=== PATIENT | female | born 1985 | race Caucasian/White ===

== ENCOUNTER 2017-10-28 07:47 | Emergency (ER) | payer MEDICAID ==
[~2017-10-28] VITALS: Ht 160 cm; Wt 61.5 kg
[~2017-10-28 07:47] MED LIST: DOXY1TAB3 PO; GING250C PO
[2017-10-28 08:18] LABS: URINE HCG NEGATIVE (NEG)
[2017-10-28 08:22] LABS: CLARITY,URINE CLOUDY (Clear); COLOR,URINE YELLOW (Yellow); GLUCOSE, URINE NEGATIVE (Neg); KETONES,URINE NEGATIVE (Neg); LEUKOCYTE ESTERASE ,URINE MODERATE (Neg); NITRITES, URINE NEGATIVE (Neg); OCCULT BLOOD,URINE LARGE (Neg); PROTEIN,URINE 30 mg/dl (Neg)
[2017-10-28 08:26] LABS: UA COLLECTION TYPE CLN CATCH MIDSTREAM
[2017-10-28 08:33] LABS: RBC,URINE TNTC /HPF (0-2); WBC,URINE 50-100 /HPF (0-4)
[2017-10-28 08:34] LABS: BACTERIA,URINE FEW /HPF (Neg); MUCUS STRANDS MODERATE /LPF (Neg); SQUAMOUS EPITHELIAL CELL,UR FEW /LPF (FEW)
[2017-10-28 08:43] VITALS: BP 108/69
[2017-10-28 08:45] LABS: BASOPHILS % (AUTO) 0.2 % (0-1); EOSINOPHILS # (AUTO) 0.2 X10'3 (0-0.9); EOSINOPHILS % (AUTO) 0.9 % (0-6); HEMATOCRIT 40.7 % (35.0-45.0); HEMOGLOBIN 14.2 g/dl (12.0-16.0); LYMPHOCYTES # (AUTO) 1.3 X10'3 (1.1-4.8); LYMPHOCYTES % (AUTO) 6.3 % (21-51); MEAN CORPUSCULAR HEMOGLOBIN 32.7 PG (27.0-31.0); MEAN CORPUSCULAR HGB CONC 34.9 % (33.0-36.5); MEAN CORPUSCULAR VOLUME 93.9 FL (78-98); MEAN PLATELET VOLUME 8.2 FL (7.4-10.4); MONOCYTES # (AUTO) 0.6 X10'3 (0-0.9); MONOCYTES % (AUTO) 2.8 % (2-12); NEUTROPHILS # (AUTO) 18.9 X10'3 (1.8-7.7); NEUTROPHILS % (AUTO) 89.8 % (42-75); PLATELET COUNT 273 X10'3 (140-440); RED BLOOD COUNT 4.33 X10'6 (4.20-5.60); RED CELL DISTRIBUTION WIDTH 14.5 % (11.5-14.5); WHITE BLOOD COUNT 21.1 X10'3 (4.5-11.0)
[2017-10-28 08:55] LABS: PROTHROMBIN TIME 10.1 SECONDS (9.0-12.0)
[2017-10-28] MEDS ORDERED: ondansetron/PF 4mg/2ml inj IV ONE (09:10)
[2017-10-28] MEDS ORDERED: fentaNYL/PF 50MCG/1 ML 2ML syringe IV ONE (09:10)
[2017-10-28 09:11] LABS: ALANINE AMINOTRANSFERASE 16 U/L (12-78); ALBUMIN 4.1 G/DL (3.4-5.0); ALBUMIN/GLOBULIN RATIO 1.1 (1.1-1.5); ALKALINE PHOSPHATASE 60 IU/L (46-116); ANION GAP 10 (8-16); ASPARTATE AMINO TRANSFERASE 18 U/L (10-37); BILIRUBIN,TOTAL 0.3 MG/DL (0.1-1.0); BLOOD UREA NITROGEN 12 MG/DL (7-18); BUN/CREATININE RATIO 18.8 (6.6-38.0); CALCIUM 9.4 MG/DL (8.5-10.1); CHLORIDE 105 MMOL/L (99-107); CREATININE 0.64 MG/DL (0.40-0.90); GLUCOSE 99 MG/DL (70-104); SODIUM 142 MMOL/L (135-145); TOTAL CARBON DIOXIDE 26.6 MMOL/L (24-32); TOTAL PROTEIN 7.7 G/DL (6.4-8.2); eGFR > 90 ML/MIN
[2017-10-28] MEDS ORDERED: diphenhydrAMINE 50 mg/ml inj IV ONE (09:50)
[2017-10-28] MEDS ORDERED: cefTRIAXone 1g/NS 100ml IVPB 100 ML IV ONE (10:15)
[2017-10-28] MEDS ORDERED: ketorolac trometh. 30mg/ml inj. IV ONE (10:15)
[2017-10-28] MEDS ORDERED: HYDROcodone/acetaminophen 5mg/325mg tablet PO ONE (10:15)
[2017-10-28] MEDS ORDERED: PHEN-716 PO (10:18)
[2017-10-28] MEDS ORDERED: ONDA8TAB9 PO (10:18)
[2017-10-28] MEDS ORDERED: CIP750T PO (10:18)
[2017-10-28] MEDS ORDERED: HYDR-3965 PO (10:18)
== END 2017-10-28 11:22 | disposition home or self-care (01) ==
LOC: ER 07:48
DX: N83.8 Other noninflammatory disorders of ovary, fallopian tube and broad ligament (principal); R10.84 Generalized abdominal pain; R31.9 Hematuria, unspecified; N39.0 Urinary tract infection, site not specified
CPT/HCPCS: 36415; 74176; 80053; 81001; 81025; 85025; 85610; 87088; 96365; 96375; 99285; J0696; J1200; J1885; J2405; J3010

== ENCOUNTER 2017-12-24 08:29 | Emergency (ER) | payer MEDICAID ==
[~2017-12-24] VITALS: Ht 160 cm; Wt 130.0 kg
[~2017-12-24 08:29] MED LIST changes: +ONDA8TAB9 PO; +PHEN-716 PO
[2017-12-24 08:33] VITALS: BP 130/66
[2017-12-24] MEDS ORDERED: ketorolac trometh inj. 60 MG/2 ML VIAL IM ONE (09:45)
[2017-12-24] MEDS ORDERED: ketorolac trometh. 30mg/ml inj. IM ONE (09:45)
[2017-12-24 10:47] LABS: CLARITY,URINE TURBID (Clear); COLOR,URINE YELLOW (Yellow); GLUCOSE, URINE NEGATIVE (Neg); KETONES,URINE TRACE mg/dl (Neg); LEUKOCYTE ESTERASE ,URINE LARGE (Neg); NITRITES, URINE POSITIVE (Neg); OCCULT BLOOD,URINE LARGE (Neg); PROTEIN,URINE 100 mg/dl (Neg); URINE HCG NEGATIVE (NEG)
[2017-12-24 10:50] LABS: UA COLLECTION TYPE CLN CATCH MIDSTREAM
[2017-12-24] MEDS ORDERED: BACDS PO (11:04)
[2017-12-24] MEDS ORDERED: PHEN-716 PO (11:04)
[2017-12-24] MEDS ORDERED: NAPR-56 PO (11:05)
[2017-12-24 11:11] LABS: RBC,URINE 20-50 /HPF (0-2); WBC,URINE TNTC /HPF (0-4)
[2017-12-24 11:12] LABS: BACTERIA,URINE 1+ /HPF (Neg); MUCUS STRANDS FEW /LPF (Neg); SQUAMOUS EPITHELIAL CELL,UR FEW /LPF (FEW)
== END 2017-12-24 11:27 | disposition home or self-care (01) ==
LOC: ER 08:30
DX: S16.1XXA Strain of muscle, fascia and tendon at neck level, initial encounter (principal); N39.0 Urinary tract infection, site not specified; X58.XXXA Exposure to other specified factors, initial encounter; Y93.01 Activity, walking, marching and hiking; Y92.89 Other specified places as the place of occurrence of the external cause; Y99.8 Other external cause status
CPT/HCPCS: 81001; 81025; 87088; 96372; 99284; J1885; 87186

== ENCOUNTER 2018-06-09 07:45 | Emergency (ER) | payer MEDICAID ==
[~2018-06-09] VITALS: Ht 160 cm; Wt 59.0 kg
[2018-06-09 07:50] VITALS: BP 116/61
[2018-06-09] MEDS ORDERED: AZIT-63 PO (08:04)
[2018-06-09] MEDS ORDERED: BENZ-16 PO (08:04)
[2018-06-09] MEDS ORDERED: CODE10LI PO (08:04)
== END 2018-06-09 08:11 | disposition home or self-care (01) ==
LOC: ER 07:46
DX: J06.9 Acute upper respiratory infection, unspecified (principal); Z88.6 Allergy status to analgesic agent; Z79.2 Long term (current) use of antibiotics; Z98.890 Other specified postprocedural states
CPT/HCPCS: 99283

== ENCOUNTER 2019-01-05 09:52 | Emergency (ER) | payer MEDICAID ==
[~2019-01-05] VITALS: Ht 160 cm; Wt 63.6 kg
[~2019-01-05 09:52] MED LIST changes: +CODE10LI PO
[2019-01-05 10:07] VITALS: BP 112/65
[2019-01-05] MEDS ORDERED: LORazepam 2 mg/ml vial IM ONE (10:50)
[2019-01-05] MEDS ORDERED: LORazepam 1 MG tablet PO ONE (11:25)
== END 2019-01-05 11:54 | disposition home or self-care (01) ==
LOC: ER 09:54
DX: F41.0 Panic disorder [episodic paroxysmal anxiety] (principal); Z98.890 Other specified postprocedural states; Z79.899 Other long term (current) drug therapy; Z88.5 Allergy status to narcotic agent
CPT/HCPCS: 93005; 99284

== ENCOUNTER 2019-01-26 10:21 | Emergency (ER) | payer MEDICAID ==
[~2019-01-26] VITALS: Ht 160 cm; Wt 50.8 kg
[2019-01-26 10:32] VITALS: BP 113/62
--- NOTE | 2019-01-26 10:56 | NUR ---
AMBULATORY TO ER #15 WITH C/O COUGH AND CONGESTION X 1.5 WEEKS. STATES SHE IS TAKING COLD MEDICATION FROM OTC WITHOUT RELIEF. EARS FEELING FULL WITH BUBBLING. HEADACHES ON AND OFF. ABD BLOATING FROM COUGHING HARD.
[2019-01-26] MEDS ORDERED: BENZ-16 PO (11:22)
[2019-01-26] MEDS ORDERED: GUAI473S11 PO (11:22)
== END 2019-01-26 11:36 | disposition home or self-care (01) ==
LOC: ER 10:21
DX: J06.9 Acute upper respiratory infection, unspecified (principal); F17.200 Nicotine dependence, unspecified, uncomplicated; Z88.5 Allergy status to narcotic agent; Z79.899 Other long term (current) drug therapy
CPT/HCPCS: 99283

== ENCOUNTER 2019-05-24 09:44 | Emergency (ER) | payer MEDICAID ==
[~2019-05-24] VITALS: Ht 160 cm; Wt 61.4 kg
[2019-05-24] MEDS ORDERED: normal saline 1000ML IV soln IVB ONE (10:30)
[2019-05-24] MEDS ORDERED: ondansetron/PF 4mg/2ml inj IV ONE (10:30)
[2019-05-24 10:49] LABS: BASOPHILS # (AUTO) 0.1 X10'3 (0-0.2); BASOPHILS % (AUTO) 0.4 % (0-1); EOSINOPHILS # (AUTO) 0.2 X10'3 (0-0.9); EOSINOPHILS % (AUTO) 1.6 % (0-6); HEMATOCRIT 40.5 % (35.0-45.0); HEMOGLOBIN 13.9 g/dl (12.0-16.0); LYMPHOCYTES # (AUTO) 1.3 X10'3 (1.1-4.8); LYMPHOCYTES % (AUTO) 10.5 % (21-51); MEAN CORPUSCULAR HEMOGLOBIN 34.2 PG (27.0-31.0); MEAN CORPUSCULAR HGB CONC 34.4 g/dL (33.0-36.5); MEAN CORPUSCULAR VOLUME 99.4 FL (78-98); MEAN PLATELET VOLUME 8.2 FL (7.4-10.4); MONOCYTES # (AUTO) 0.6 X10'3 (0-0.9); MONOCYTES % (AUTO) 5.2 % (2-12); NEUTROPHILS # (AUTO) 10.1 X10'3 (1.8-7.7); NEUTROPHILS % (AUTO) 82.3 % (42-75); PLATELET COUNT 269 X10'3 (140-440); RED BLOOD COUNT 4.07 X10'6 (4.20-5.60); RED CELL DISTRIBUTION WIDTH 13.5 % (11.5-14.5); WHITE BLOOD COUNT 12.2 X10'3 (4.5-11.0)
[2019-05-24 11:02] LABS: ALANINE AMINOTRANSFERASE 18 U/L (12-78); ALBUMIN 3.9 G/DL (3.4-5.0); ALBUMIN/GLOBULIN RATIO 1.2 (1.1-1.5); ALKALINE PHOSPHATASE 43 IU/L (46-116); AMYLASE 34 U/L (25-115); ANION GAP 9 (8-16); ASPARTATE AMINO TRANSFERASE 17 U/L (10-37); BILIRUBIN,TOTAL 0.8 MG/DL (0.1-1.0); BLOOD UREA NITROGEN 12 MG/DL (7-18); BUN/CREATININE RATIO 21.4 (6.6-38.0); CALCIUM 8.8 MG/DL (8.5-10.1); CHLORIDE 105 MMOL/L (99-107); CREATININE 0.56 MG/DL (0.40-0.90); GLUCOSE 84 MG/DL (70-104); LIPASE 50 U/L (73-393); POTASSIUM 3.9 MMOL/L (3.5-5.1); SODIUM 141 MMOL/L (135-145); TOTAL CARBON DIOXIDE 26.8 MMOL/L (24-32); TOTAL PROTEIN 7.2 G/DL (6.4-8.2); eGFR > 90 ML/MIN
[2019-05-24] MEDS ORDERED: ONDA4TAB12 PO (11:35)
[2019-05-24 11:48] VITALS: BP 122/54
[2019-05-24 11:53] LABS: CLARITY,URINE CLEAR (Clear); COLOR,URINE YELLOW (Yellow); GLUCOSE, URINE NEGATIVE (Neg); KETONES,URINE 40 mg/dl (Neg); LEUKOCYTE ESTERASE ,URINE NEGATIVE (Neg); NITRITES, URINE NEGATIVE (Neg); OCCULT BLOOD,URINE LARGE (Neg); PH,URINE 7.5 (4.8-8.0); PROTEIN,URINE NEGATIVE (Neg); URINE HCG NEGATIVE (NEG)
[2019-05-24 11:57] LABS: UA COLLECTION TYPE CLN CATCH MIDSTREAM
[2019-05-24 11:58] LABS: BACTERIA,URINE 1+ /HPF (Neg); MUCUS STRANDS FEW /LPF (Neg); SQUAMOUS EPITHELIAL CELL,UR MODERATE /LPF (FEW); WBC,URINE NONE SEEN /HPF (0-4)
== END 2019-05-24 11:52 | disposition home or self-care (01) ==
LOC: ER 09:44
DX: R11.2 Nausea with vomiting, unspecified (principal); R10.13 Epigastric pain; F41.9 Anxiety disorder, unspecified; F10.99 Alcohol use, unspecified with unspecified alcohol-induced disorder; Z98.890 Other specified postprocedural states; Z88.5 Allergy status to narcotic agent; Z79.899 Other long term (current) drug therapy; Y90.9 Presence of alcohol in blood, level not specified
CPT/HCPCS: 36415; 80053; 81001; 81025; 82150; 83690; 85025; 85610; 96361; 96374; 99283; J2405; J7030

== ENCOUNTER 2019-07-19 07:47 | Emergency (ER) | payer MEDICAID ==
[~2019-07-19] VITALS: Ht 160 cm; Wt 60.0 kg
[~2019-07-19 07:47] MED LIST changes: +ONDA4TAB12 PO
[2019-07-19] MEDS ORDERED: morphine 10mg/ml inj. IV ONE (08:05)
[2019-07-19] MEDS ORDERED: ondansetron/PF 4mg/2ml inj IV ONE (08:05)
[2019-07-19] MEDS ORDERED: diphenhydrAMINE 50 mg/ml inj IM ONE (08:05)
[2019-07-19] MEDS ORDERED: normal saline 1000ml 1,000 ML IV ONE (08:15)
[2019-07-19 08:25] LABS: BASOPHILS % (AUTO) 0.3 % (0-1); EOSINOPHILS # (AUTO) 0.1 X10'3 (0-0.9); EOSINOPHILS % (AUTO) 0.8 % (0-6); HEMATOCRIT 41.7 % (35.0-45.0); HEMOGLOBIN 14.5 g/dl (12.0-16.0); LYMPHOCYTES # (AUTO) 1.1 X10'3 (1.1-4.8); LYMPHOCYTES % (AUTO) 9.2 % (21-51); MEAN CORPUSCULAR HEMOGLOBIN 35.1 PG (27.0-31.0); MEAN CORPUSCULAR HGB CONC 34.8 g/dL (33.0-36.5); MEAN CORPUSCULAR VOLUME 100.8 FL (78-98); MEAN PLATELET VOLUME 7.7 FL (7.4-10.4); MONOCYTES # (AUTO) 0.8 X10'3 (0-0.9); MONOCYTES % (AUTO) 6.5 % (2-12); NEUTROPHILS # (AUTO) 9.8 X10'3 (1.8-7.7); NEUTROPHILS % (AUTO) 83.2 % (42-75); PLATELET COUNT 298 X10'3 (140-440); RED BLOOD COUNT 4.14 X10'6 (4.20-5.60); RED CELL DISTRIBUTION WIDTH 13.5 % (11.5-14.5); WHITE BLOOD COUNT 11.8 X10'3 (4.5-11.0)
[2019-07-19 08:29] LABS: CLARITY,URINE CLOUDY (Clear); COLOR,URINE YELLOW (Yellow); GLUCOSE, URINE NEGATIVE (Neg); KETONES,URINE NEGATIVE (Neg); LEUKOCYTE ESTERASE ,URINE NEGATIVE (Neg); NITRITES, URINE NEGATIVE (Neg); OCCULT BLOOD,URINE NEGATIVE (Neg); PROTEIN,URINE TRACE mg/dl (Neg); URINE HCG NEGATIVE (NEG)
[2019-07-19 08:34] LABS: UA COLLECTION TYPE CLN CATCH MIDSTREAM
[2019-07-19 08:36] LABS: MUCUS STRANDS MODERATE /LPF (Neg); SQUAMOUS EPITHELIAL CELL,UR MANY /LPF (FEW)
[2019-07-19 08:38] LABS: RBC,URINE 0-2 /HPF (0-2); WBC,URINE 0-4 /HPF (0-4)
[2019-07-19 08:40] LABS: BACTERIA,URINE 2+ /HPF (Neg)
[2019-07-19 08:40] LABS: ALANINE AMINOTRANSFERASE 16 U/L (12-78); ALBUMIN 4.5 G/DL (3.4-5.0); ALBUMIN/GLOBULIN RATIO 1.3 (1.1-1.5); ALKALINE PHOSPHATASE 46 IU/L (46-116); AMYLASE 42 U/L (25-115); ANION GAP 9 (8-16); ASPARTATE AMINO TRANSFERASE 22 U/L (10-37); BILIRUBIN,TOTAL 0.4 MG/DL (0.1-1.0); BLOOD UREA NITROGEN 7 MG/DL (7-18); BUN/CREATININE RATIO 11.3 (6.6-38.0); CALCIUM 9.2 MG/DL (8.5-10.1); CHLORIDE 106 MMOL/L (99-107); CREATININE 0.62 MG/DL (0.40-0.90); GLUCOSE 94 MG/DL (70-104); LIPASE 88 U/L (73-393); SODIUM 143 MMOL/L (135-145); TOTAL CARBON DIOXIDE 27.6 MMOL/L (24-32); TOTAL PROTEIN 8.1 G/DL (6.4-8.2); eGFR > 90 ML/MIN
[2019-07-19] MEDS ORDERED: morphine 4 MG/ML inj SYRINge IV ONE (10:00)
[2019-07-19] MEDS ORDERED: diphenhydrAMINE 50 mg/ml inj IV ONE (10:35)
--- NOTE | 2019-07-19 11:19 | NUR ---
LAST JESSICA HELD PER PA DIRECTION
[2019-07-19] MEDS ORDERED: ketorolac tromethamine 15mg/ml inj. IV ONE (11:40)
--- NOTE | 2019-07-19 11:59 | NUR ---
RN ON BREAK, PT MEDICATED FOR PAIN AND CURRENTLY HAVING ULTRASOUND AT [facility].
[2019-07-19] MEDS ORDERED: DIPH25CA83 PO (12:12)
[2019-07-19] MEDS ORDERED: HYDR-4383 PO (12:12)
[2019-07-19] MEDS ORDERED: ONDA4TAB6 PO (12:12)
[2019-07-19 12:40] VITALS: BP 108/63
== END 2019-07-19 12:43 | disposition home or self-care (01) ==
LOC: ER 07:48
DX: D27.0 Benign neoplasm of right ovary (principal); K52.9 Noninfective gastroenteritis and colitis, unspecified; R10.11 Right upper quadrant pain; R10.31 Right lower quadrant pain; Z98.890 Other specified postprocedural states; Z88.5 Allergy status to narcotic agent
CPT/HCPCS: 36415; 74176; 76830; 76856; 80053; 81001; 81025; 82150; 83690; 85025; 96361; 96374; 96375; 96376; 99284; J1200; J1885; J2270; J2405; J7030

== ENCOUNTER 2019-09-07 09:59 | Emergency (ER) | payer MEDICAID ==
[~2019-09-07] VITALS: Ht 160 cm; Wt 61.2 kg
[~2019-09-07 09:59] MED LIST changes: +DIPH25CA83 PO; +HYDR-4383 PO; +ONDA4TAB6 PO
[2019-09-07] MEDS ORDERED: ketorolac tromethamine 15mg/ml inj. IV ONE (11:15)
[2019-09-07] MEDS ORDERED: ondansetron/PF 4mg/2ml inj IV ONE (11:15)
[2019-09-07] MEDS ORDERED: normal saline 1000ML IV soln IVB ONE (11:15)
--- NOTE | 2019-09-07 11:40 | NUR ---
US at bedside
[2019-09-07 11:44] LABS: BASOPHILS # (AUTO) 0.1 X10'3 (0-0.2); BASOPHILS % (AUTO) 0.7 % (0-1); EOSINOPHILS # (AUTO) 0.1 X10'3 (0-0.9); EOSINOPHILS % (AUTO) 1.3 % (0-6); HEMATOCRIT 41.3 % (35.0-45.0); HEMOGLOBIN 14.3 g/dl (12.0-16.0); LYMPHOCYTES # (AUTO) 1.5 X10'3 (1.1-4.8); LYMPHOCYTES % (AUTO) 17.2 % (21-51); MEAN CORPUSCULAR HEMOGLOBIN 34.8 PG (27.0-31.0); MEAN CORPUSCULAR HGB CONC 34.6 g/dL (33.0-36.5); MEAN CORPUSCULAR VOLUME 100.6 FL (78-98); MEAN PLATELET VOLUME 7.6 FL (7.4-10.4); MONOCYTES # (AUTO) 0.4 X10'3 (0-0.9); MONOCYTES % (AUTO) 4.9 % (2-12); NEUTROPHILS # (AUTO) 6.7 X10'3 (1.8-7.7); NEUTROPHILS % (AUTO) 75.9 % (42-75); PLATELET COUNT 291 X10'3 (140-440); RED BLOOD COUNT 4.11 X10'6 (4.20-5.60); RED CELL DISTRIBUTION WIDTH 13.3 % (11.5-14.5); WHITE BLOOD COUNT 8.9 X10'3 (4.5-11.0)
[2019-09-07 12:02] LABS: ALANINE AMINOTRANSFERASE 19 U/L (12-78); ALBUMIN 4.1 G/DL (3.4-5.0); ALBUMIN/GLOBULIN RATIO 1.3 (1.1-1.5); ALKALINE PHOSPHATASE 44 IU/L (46-116); ANION GAP 8 (8-16); ASPARTATE AMINO TRANSFERASE 19 U/L (10-37); BILIRUBIN,TOTAL 0.5 MG/DL (0.1-1.0); BLOOD UREA NITROGEN 9 MG/DL (7-18); BUN/CREATININE RATIO 12.9 (6.6-38.0); CALCIUM 9.4 MG/DL (8.5-10.1); CHLORIDE 106 MMOL/L (99-107); GLUCOSE 81 MG/DL (70-104); POTASSIUM 4.1 MMOL/L (3.5-5.1); SODIUM 143 MMOL/L (135-145); TOTAL CARBON DIOXIDE 29.2 MMOL/L (24-32); TOTAL PROTEIN 7.3 G/DL (6.4-8.2); eGFR > 90 ML/MIN
[2019-09-07] MEDS ORDERED: IBUP-1985 PO (12:27)
--- NOTE | 2019-09-07 12:36 | NUR ---
ENCOURAGED FLUIDS. ASKED PT FOR UA. SHE SAID SHE WILL TRY.
[2019-09-07 12:41] VITALS: BP 123/71
== END 2019-09-07 12:47 | disposition home or self-care (01) ==
LOC: ER 10:00
DX: N83.8 Other noninflammatory disorders of ovary, fallopian tube and broad ligament (principal); R10.31 Right lower quadrant pain; R19.7 Diarrhea, unspecified; F17.210 Nicotine dependence, cigarettes, uncomplicated; Z98.890 Other specified postprocedural states; Z88.5 Allergy status to narcotic agent
CPT/HCPCS: 36415; 76856; 80053; 85025; 96361; 96374; 96375; 99284; J1885; J2405; J7030

== ENCOUNTER 2020-02-25 11:57 | Emergency (ER) | payer MEDICAID ==
[~2020-02-25] VITALS: Ht 160 cm; Wt 62.7 kg
[~2020-02-25 11:57] MED LIST changes: +IBUP-1985 PO
[2020-02-25 12:31] LABS: URINE HCG NEGATIVE (NEG)
[2020-02-25 12:38] LABS: BASOPHILS # (AUTO) 0.1 X10'3 (0-0.2); BASOPHILS % (AUTO) 0.5 % (0-1); EOSINOPHILS # (AUTO) 0.3 X10'3 (0-0.9); EOSINOPHILS % (AUTO) 2.4 % (0-6); HEMATOCRIT 43.9 % (35.0-45.0); LYMPHOCYTES # (AUTO) 1.7 X10'3 (1.1-4.8); LYMPHOCYTES % (AUTO) 16.4 % (21-51); MEAN CORPUSCULAR HGB CONC 34.1 g/dL (33.0-36.5); MEAN CORPUSCULAR VOLUME 99.5 FL (78-98); MONOCYTES # (AUTO) 0.6 X10'3 (0-0.9); MONOCYTES % (AUTO) 5.8 % (2-12); NEUTROPHILS % (AUTO) 74.9 % (42-75); PLATELET COUNT 304 X10'3 (140-440); RED BLOOD COUNT 4.41 X10'6 (4.20-5.60); RED CELL DISTRIBUTION WIDTH 15.1 % (11.5-14.5); WHITE BLOOD COUNT 10.7 X10'3 (4.5-11.0)
[2020-02-25 12:39] LABS: CLARITY,URINE SLIGHTLY CLOUDY (Clear); COLOR,URINE YELLOW (Yellow); GLUCOSE, URINE NEGATIVE (Neg); KETONES,URINE NEGATIVE (Neg); LEUKOCYTE ESTERASE ,URINE NEGATIVE (Neg); NITRITES, URINE NEGATIVE (Neg); OCCULT BLOOD,URINE TRACE-INTACT (Neg); PH,URINE 6.5 (4.8-8.0); PROTEIN,URINE NEGATIVE (Neg); UROBILINOGEN,URINE 0.2 E.U/dL (0.2-1.0)
[2020-02-25 12:41] LABS: UA COLLECTION TYPE CLN CATCH MIDSTREAM
[2020-02-25 12:47] LABS: ALANINE AMINOTRANSFERASE 20 U/L (12-78); ALBUMIN 4.4 G/DL (3.4-5.0); ALBUMIN/GLOBULIN RATIO 1.2 (1.1-1.5); ALKALINE PHOSPHATASE 52 IU/L (46-116); ANION GAP 10 (8-16); ASPARTATE AMINO TRANSFERASE 20 U/L (10-37); BILIRUBIN,TOTAL 0.5 MG/DL (0.1-1.0); BLOOD UREA NITROGEN 14 MG/DL (7-18); BUN/CREATININE RATIO 13.7 (6.6-38.0); CALCIUM 9.6 MG/DL (8.5-10.1); CHLORIDE 105 MMOL/L (99-107); CREATININE 1.02 MG/DL (0.40-0.90); GLUCOSE 86 MG/DL (70-104); LIPASE 119 U/L (73-393); POTASSIUM 3.6 MMOL/L (3.5-5.1); SODIUM 143 MMOL/L (135-145); TOTAL PROTEIN 8.1 G/DL (6.4-8.2); eGFR 62 ML/MIN
[2020-02-25 13:04] LABS: SQUAMOUS EPITHELIAL CELL,UR MANY /LPF (FEW)
[2020-02-25 13:05] LABS: MUCUS STRANDS MANY /LPF (Neg)
[2020-02-25 13:07] LABS: BACTERIA,URINE FEW /HPF (Neg); WBC,URINE 0-4 /HPF (0-4)
[2020-02-25 13:08] LABS: TRANSITIONAL EPI CELLS,URINE FEW /HPF; YEAST FEW /HPF (NEGATIVE)
[2020-02-25] MEDS ORDERED: normal saline 1000ML IV soln IVB ONE (14:35)
--- NOTE | 2020-02-25 15:15 | NUR ---
called ct to let know pt is ok to go
--- NOTE | 2020-02-25 15:50 | NUR ---
spoke to provider Dr Kang, pt iv infiltrated, she is having pain from surrounding site, she wants it removed, he is ok for her to do oral fluids
[2020-02-25] MEDS ORDERED: METR500T PO (16:09)
[2020-02-25] MEDS ORDERED: CIPR-259 PO (16:09)
[2020-02-25 16:43] VITALS: BP 123/69
== END 2020-02-25 16:40 | disposition home or self-care (01) ==
LOC: ER 11:58
DX: R19.7 Diarrhea, unspecified (principal); R42 Dizziness and giddiness; R10.30 Lower abdominal pain, unspecified; R11.0 Nausea; F41.9 Anxiety disorder, unspecified; Z98.890 Other specified postprocedural states; Z72.89 Other problems related to lifestyle; Z79.2 Long term (current) use of antibiotics; Z79.899 Other long term (current) drug therapy
CPT/HCPCS: 36415; 74176; 80053; 81001; 81025; 83690; 85025; 99284; J7030

== ENCOUNTER 2021-02-16 08:15 | Emergency (ER) | payer MEDICAID ==
[~2021-02-16] VITALS: Ht 160 cm; Wt 61.7 kg
[2021-02-16] MEDS ORDERED: DEXTROSE 5% IV ONE (09:35)
[2021-02-16] MEDS ORDERED: WATER IV ONE (09:35)
[2021-02-16] MEDS ORDERED: ACETYLCYSTEINE IV ONE (09:35)
[2021-02-16 09:52] LABS: BASOPHILS % (AUTO) 0.3 % (0-1); EOSINOPHILS # (AUTO) 0.1 X10'3 (0-0.9); EOSINOPHILS % (AUTO) 0.9 % (0-6); HEMATOCRIT 42.4 % (35.0-45.0); HEMOGLOBIN 14.4 g/dl (12.0-16.0); LYMPHOCYTES # (AUTO) 1.3 X10'3 (1.1-4.8); LYMPHOCYTES % (AUTO) 11.9 % (21-51); MEAN CORPUSCULAR HEMOGLOBIN 34.3 PG (27.0-31.0); MEAN CORPUSCULAR HGB CONC 34.1 g/dL (33.0-36.5); MEAN CORPUSCULAR VOLUME 100.6 FL (78-98); MEAN PLATELET VOLUME 7.4 FL (7.4-10.4); MONOCYTES # (AUTO) 0.7 X10'3 (0-0.9); MONOCYTES % (AUTO) 6.4 % (2-12); NEUTROPHILS # (AUTO) 8.6 X10'3 (1.8-7.7); NEUTROPHILS % (AUTO) 80.5 % (42-75); PLATELET COUNT 267 X10'3 (140-440); RED BLOOD COUNT 4.22 X10'6 (4.20-5.60); RED CELL DISTRIBUTION WIDTH 13.7 % (11.5-14.5); WHITE BLOOD COUNT 10.7 X10'3 (4.5-11.0)
[2021-02-16 09:59] LABS: ALANINE AMINOTRANSFERASE 28 U/L (12-78); ALBUMIN 4.9 G/DL (3.4-5.0); ALBUMIN/GLOBULIN RATIO 1.5 (1.1-1.5); ALKALINE PHOSPHATASE 41 IU/L (46-116); ANION GAP 12 (8-16); ASPARTATE AMINO TRANSFERASE 21 U/L (10-37); BILIRUBIN,TOTAL 0.8 MG/DL (0.1-1.0); BLOOD UREA NITROGEN 16 MG/DL (7-18); BUN/CREATININE RATIO 20.5 (6.6-38.0); CALCIUM 9.6 MG/DL (8.5-10.1); CHLORIDE 104 MMOL/L (99-107); CREATININE 0.78 MG/DL (0.40-0.90); GLUCOSE 91 MG/DL (70-104); LIPASE 68 U/L (73-393); SODIUM 142 MMOL/L (135-145); TOTAL CARBON DIOXIDE 26.2 MMOL/L (24-32); TOTAL PROTEIN 8.1 G/DL (6.4-8.2); eGFR 84 ML/MIN
[2021-02-16 10:05] LABS: ACETAMINOPHEN < 2.0 UG/ML (10-30)
--- NOTE | 2021-02-16 12:00 | NUR ---
called and spoke with Rosina at poison control the patient had alreay opened a case at poison control so I updated them. the only recommendation was to do a repeat tylenol level and then able to discharge. passed on the info to Joni
[2021-02-16 13:29] VITALS: BP 110/69
== END 2021-02-16 13:32 | disposition home or self-care (01) ==
LOC: ER 08:16
DX: T39.1X1A Poisoning by 4-Aminophenol derivatives, accidental (unintentional), initial encounter (principal); F41.9 Anxiety disorder, unspecified; Z98.890 Other specified postprocedural states; Z72.89 Other problems related to lifestyle; Z88.8 Allergy status to other drugs, medicaments and biological substances; Z79.899 Other long term (current) drug therapy; Y92.89 Other specified places as the place of occurrence of the external cause
CPT/HCPCS: 36415; 80053; 80329; 83690; 85025; 93005; 96365; 99285; J0132; J7060

== ENCOUNTER 2022-06-12 09:48 | Emergency (ER) | payer MEDICAID ==
[~2022-06-12] VITALS: Ht 160 cm; Wt 59.1 kg
[2022-06-12 10:17] VITALS: BP 122/65
[2022-06-12 11:00] LABS: BASOPHILS % (AUTO) 0.2 % (0-1); EOSINOPHILS # (AUTO) 0.2 X10'3 (0-0.9); EOSINOPHILS % (AUTO) 1.8 % (0-6); HEMATOCRIT 41.2 % (35.0-45.0); HEMOGLOBIN 14.4 g/dl (12.0-16.0); LYMPHOCYTES # (AUTO) 1.6 X10'3 (1.1-4.8); LYMPHOCYTES % (AUTO) 15.3 % (21-51); MEAN CORPUSCULAR HEMOGLOBIN 35.7 PG (27.0-31.0); MEAN CORPUSCULAR HGB CONC 34.9 g/dL (33.0-36.5); MEAN CORPUSCULAR VOLUME 102.3 FL (78-98); MEAN PLATELET VOLUME 7.4 FL (7.4-10.4); MONOCYTES # (AUTO) 0.7 X10'3 (0-0.9); MONOCYTES % (AUTO) 6.2 % (2-12); NEUTROPHILS % (AUTO) 76.5 % (42-75); PLATELET COUNT 309 X10'3 (140-440); RED BLOOD COUNT 4.03 X10'6 (4.20-5.60); RED CELL DISTRIBUTION WIDTH 12.8 % (11.5-14.5); WHITE BLOOD COUNT 10.5 X10'3 (4.5-11.0)
[2022-06-12 11:03] LABS: CLARITY,URINE SLIGHTLY CLOUDY (Clear); COLOR,URINE ORANGE (Yellow); PH,URINE 6.5 (4.8-8.0); URINE HCG NEGATIVE (NEG)
[2022-06-12 11:10] LABS: UA COLLECTION TYPE CLN CATCH MIDSTREAM
[2022-06-12 11:12] LABS: BACTERIA,URINE 4+ /HPF (Neg); MUCUS STRANDS NONE SEEN /LPF (Neg); SQUAMOUS EPITHELIAL CELL,UR MODERATE /LPF (FEW); WBC CLUMPS,URINE FEW /HPF (NEGATIVE); WBC,URINE TNTC /HPF (0-4)
[2022-06-12 11:17] LABS: ALANINE AMINOTRANSFERASE 28 U/L (12-78); ALBUMIN 4.2 G/DL (3.4-5.0); ALBUMIN/GLOBULIN RATIO 1.1 (1.1-1.5); ALKALINE PHOSPHATASE 49 IU/L (46-116); ANION GAP 10 (8-16); ASPARTATE AMINO TRANSFERASE 42 U/L (10-37); BILIRUBIN,TOTAL 0.9 MG/DL (0.1-1.0); BLOOD UREA NITROGEN 12 MG/DL (7-18); BUN/CREATININE RATIO 19.7 (6.6-38.0); CALCIUM 9.5 MG/DL (8.5-10.1); CHLORIDE 102 MMOL/L (99-107); CREATININE 0.61 MG/DL (0.40-0.90); GLUCOSE 90 MG/DL (70-104); LIPASE 80 U/L (73-393); POTASSIUM 3.9 MMOL/L (3.5-5.1); SODIUM 139 MMOL/L (135-145); TOTAL CARBON DIOXIDE 26.8 MMOL/L (24-32); TOTAL PROTEIN 7.9 G/DL (6.4-8.2); eGFR > 90 ML/MIN
[2022-06-12] MEDS ORDERED: famotidine/PF 10 mg/ml inj IV ONE (13:50)
[2022-06-12] MEDS ORDERED: ketorolac trometh. 30mg/ml inj. IV ONE (13:50)
[2022-06-12] MEDS ORDERED: ondansetron/PF 4mg/2ml inj IV ONE (13:50)
[2022-06-12] MEDS ORDERED: normal saline 1000ML IV soln IVB ONE (13:50)
[2022-06-12] MEDS ORDERED: levoFLOXACIN 750MG TABLET PO ONE (14:00)
[2022-06-12] MEDS ORDERED: NAPR-56 PO (15:05)
[2022-06-12] MEDS ORDERED: TRAM50TA2 PO (15:05)
[2022-06-12] MEDS ORDERED: LEVO-65 PO (15:05)
== END 2022-06-12 16:21 | disposition home or self-care (01) ==
LOC: ER 09:49
DX: N10 Acute pyelonephritis (principal); N39.0 Urinary tract infection, site not specified; R11.2 Nausea with vomiting, unspecified; R10.32 Left lower quadrant pain; F41.9 Anxiety disorder, unspecified; Z87.440 Personal history of urinary (tract) infections; Z98.890 Other specified postprocedural states; Z72.89 Other problems related to lifestyle; Z88.8 Allergy status to other drugs, medicaments and biological substances; Z88.5 Allergy status to narcotic agent; Z79.2 Long term (current) use of antibiotics; Z79.899 Other long term (current) drug therapy
CPT/HCPCS: 36415; 74176; 80053; 81001; 81025; 83690; 85025; 87077; 87088; 87186; 96374; 96375; 99284; J1885; J2405; J3490; J7030

== ENCOUNTER 2023-10-11 07:57 | Emergency (ER) | payer MEDICAID ==
[~2023-10-11] VITALS: Ht 160 cm; Wt 50.6 kg
[~2023-10-11 07:57] MED LIST changes: -CODE10LI PO; +CODE10LI2 PO
[2023-10-11 08:17] VITALS: BP 105/69; PULSE 108; RESP 20; TEMP 98.2; O2SAT 98
[2023-10-11 09:46] LABS: BASOPHILS % (AUTO) 0.6 % (0-1); EOSINOPHILS # (AUTO) 0.1 X10'3 (0-0.9); EOSINOPHILS % (AUTO) 2.2 % (0-6); HEMATOCRIT 43.3 % (35.0-45.0); HEMOGLOBIN 14.6 g/dl (12.0-16.0); LYMPHOCYTES # (AUTO) 1.5 X10'3 (1.1-4.8); LYMPHOCYTES % (AUTO) 23.3 % (21-51); MEAN CORPUSCULAR HEMOGLOBIN 32.9 PG (27.0-31.0); MEAN CORPUSCULAR HGB CONC 33.7 g/dL (33.0-36.5); MEAN CORPUSCULAR VOLUME 97.5 FL (78-98); MEAN PLATELET VOLUME 8.2 FL (7.4-10.4); MONOCYTES # (AUTO) 0.5 X10'3 (0-0.9); MONOCYTES % (AUTO) 7.3 % (2-12); NEUTROPHILS # (AUTO) 4.4 X10'3 (1.8-7.7); NEUTROPHILS % (AUTO) 66.6 % (42-75); PLATELET COUNT 252 X10'3 (140-440); RED BLOOD COUNT 4.44 X10'6 (4.20-5.60); WHITE BLOOD COUNT 6.6 X10'3 (4.5-11.0)
[2023-10-11 09:59] LABS: ALBUMIN 4.1 G/DL (3.4-5.0); ANION GAP 6 (8-16); BLOOD UREA NITROGEN 10 MG/DL (7-18); BUN/CREATININE RATIO 14.9 (10.0-20.0); CALCIUM 9.3 MG/DL (8.5-10.1); CHLORIDE 104 MMOL/L (99-107); CREATININE 0.67 MG/DL (0.40-0.90); GLUCOSE 85 MG/DL (70-104); LIPASE 28 U/L (16-77); POTASSIUM 4.2 MMOL/L (3.5-5.1); SODIUM 142 MMOL/L (135-145); TOTAL CARBON DIOXIDE 31.7 MMOL/L (24-32); eCRCL 90 ML/MIN; eGFR > 90 ML/MIN
== END 2023-10-11 11:44 | disposition left against medical advice (07) ==
LOC: ER 07:57
DX: R10.9 Unspecified abdominal pain (principal); Z53.21 Procedure and treatment not carried out due to patient leaving prior to being seen by health care provider
CPT/HCPCS: 36415; 80048; 83690; 85025; 99281

== ENCOUNTER 2024-03-11 13:58 | Outpatient (CLI) | payer MEDICAID ==
[~2024-03-11 13:58] MED LIST changes: +ONDA-243 PO; -ONDA4TAB12 PO
[2024-03-11] MEDS ORDERED: iohexol 300mg/ml 100ml inj. ONE (14:10)
== END 2024-03-11 23:59 | disposition home or self-care (01) ==
LOC: RAD 13:58
PROVIDERS: ATTEND Nurse Practitioner
DX: R16.0 Hepatomegaly, not elsewhere classified (principal); R63.0 Anorexia; R10.32 Left lower quadrant pain; R50.9 Fever, unspecified; N85.4 Malposition of uterus; N13.8 Other obstructive and reflux uropathy; Z98.82 Breast implant status
CPT/HCPCS: 71046; 74178; Q9967

== ENCOUNTER → 2024-03-26 | Outpatient (CLI) | payer MEDICAID | END | disposition home or self-care (01) | LOC: RAD 13:13 | PROVIDERS: ATTEND Nurse Practitioner | DX: R63.0 Anorexia (principal) | CPT/HCPCS: 74240 ==